=== PATIENT | female | born 1945 ===

== ENCOUNTER 2021-04-11 12:43 | Outpatient (CLI) | payer MEDICARE, BC ==
[2021-04-11] MEDS ORDERED: LIDOCAINE 1%/EPINEPHRINE 1:100,000 VIAL (20 ML) INFILTRATI ONE (13:50)
--- NOTE | 2021-04-11 15:39 | Ultrasound Report ---
ULTRASOUND GUIDED LEFT BREAST AND AXILLARY LYMPH NODE BIOPSY, 04/11/2021 CLINICAL INFORMATION / INDICATION: LT BREAST MASS. Ulcerative left breast mass and enlarged left axil patricio lymph node noted, cancer workup COMPARISON: Recent outside imaging PROCEDURE: Risks, benefits, and indications to the procedure were discussed with the patient in detail, includin g bleeding, infection, hematoma formation, and inadequate tissue sampling. The patient agreed to proc eed with both verbal and written consent. A timeout procedure was performed with two patient identifi ers. The breast was prepped and draped in the usual sterile fashion. Lidocaine 1% was used for local anest hesia. Under direct ultrasound guidance, 4 separate 14 gauge core samples were obtained of the ulcera tive left breast mass which measured 3.2 x 2.4 x 2.7 cm. A biopsy marker was then placed. Biopsy dev ice was removed and hemostasis achieved with manual pressure. A sterile dressing was applied to the s kin. A left axillary lymph node with thickened irregular cortex measuring up to 1 cm was then targeted for biopsy. Again the left axilla was prepped and draped in the usual sterile fashion and lidocaine was used for local anesthesia. Under direct ultrasound guidance, 3 separate 18-gauge biopsy samples were obtained and placed in formalin. A biopsy clip was then placed, manual pressure applied, and a steril e dressing placed to the skin surface. The patient tolerated the procedure without difficulty. No complications were encountered. Postbiopsy instructions were discussed with the patient and given in writing. Specimens were sent to pathology. IMPRESSION: 1. Technically successful ultrasound guided left breast and left axillary lymph node biopsies. Biopsy results are pending and will be reported in an addendum. Signer Name: Srinath Martinez MD Signed: 04/11/2021 3:34 PM Workstation Name: [id number]
== END 2021-04-11 12:44 | disposition home or self-care (01) ==
LOC: US 12:43
PROVIDERS: ATTEND Surgery
DX: N63.20 Unspecified lump in the left breast, unspecified quadrant (principal); R59.9 Enlarged lymph nodes, unspecified; R92.8 Other abnormal and inconclusive findings on diagnostic imaging of breast; N64.89 Other specified disorders of breast
CPT/HCPCS: 38505; 76942; 88305; 88341; 88342; 88368